=== PATIENT | female | born 1985 | race African-American/Black ===

== ENCOUNTER 2016-10-30 10:30 | Observation (INO) ==
[2016-10-30] MEDS ORDERED: SODIUM CHLORIDE 0.9% 1,000 ML IV STA (11:28)
[2016-10-30] MEDS ORDERED: ONDANSETRON 4 MG/2 ML VIAL IV STA (11:29)
[2016-10-30 11:30] LABS: Basophils % 0.3 % (0.0-0.8); Eosinophils # 0.1 10*3/uL (0.0-0.87); Eosinophils % 0.5 % (0.00-10.9); Hematocrit 37.5 VOL% (35.7-47.0); Hemoglobin 12.1 GM/DL (12.0-16.0); Immature Granulocytes % 0.4 %; Immature Granulocytes Absolute 0.05 #; Lymphocytes # 2.7 10*3/uL (1.4-4.0); Lymphocytes % 20.4 % (21.3-54.2); Mean Corpuscular HGB Conc 32.3 GM/DL (32-36); Mean Corpuscular Hemoglobin 23 PG (27-34); Mean Corpuscular Volume 72.1 FL (87-102); Mean Platelet Volume 9.5 FL (9.6-12.0); Monocytes # 0.6 10*3/uL (0.11-0.8); Monocytes % 4.2 % (1.7-12.7); Neutrophils # 9.8 10*3/uL (1.4-7.4); Neutrophils % 74.2 % (38.7-73.9); Platelet Count 310 10*3/uL (130-400); Red Cell Distribution Width 16.7 % (9.3-17.3); White Blood Count 13.2 10*3/uL (4.5-13.71)
--- NOTE | 2016-10-30 11:34 | Emergency Department Note ---
Arrival - Arrival Chief Complaint: Nausea/Vomiting/Diarrhea Stated Complaint: 8 wks , can't sto vomiting ED Nursing Triage Note: Pt is 8 wks gestation and had N/V the last four weeks but has been worse this morning. Mode of Arrival: Ambulatory Source: Patient Time Seen by Provider: 10/30/16 11:10 - History of Present Illness HPI Narrative: 31 y/o black female presents to the ER complaining of N/V. Patient is approximately 8 weeks and has not been able to hold down solid food for the last 3 weeks. Currently taking Phenergan with little results. Denies abdominal pain, fever, urinary symptoms, or vaginal bleeding. Past medical history significant for GERD, Hyperemesis gravidarum, Onset (ago): week(s) (3) Consistency: constant Severity: mild Date of Last Menstrual Period: 08/29/16 Allergies/Adverse Reactions: Allergies Allergy/AdvReac Type Severity Reaction Status Date / Time acetaminophen [From Lortab] Allergy Swelling Verified 12/08/15 23:32 of Lip/Tongue/Throat hydrocodone [From Lortab] Allergy Swelling Verified 12/08/15 23:32 of Lip/Tongue/Throat penicillin G Allergy Swelling Verified 10/18/16 19:34 of Lip/Tongue/Throat Home Medications: Home Medications Medication Instructions Recorded Confirmed Type Pnv#16/Iron Fum & Ps/FA/Om-3 1 capsule PO BEDTIME 10/26/16 10/30/16 History [Javed-C Dha Capsule] Progesterone,Micronized 200 mg PO BEDTIME 10/26/16 10/30/16 History [Progesterone] Promethazine HCl 25 mg PO Q4-6H PRN 10/26/16 10/30/16 History Promethazine Supp [Phenergan Supp] 25 mg RECTAL Q4H PRN 10/26/16 10/30/16 History Review of System - Review of System 12 point system: reviewed and no additional remarkable complaints except as stated - Review of System Gastrointestinal: Present: nausea, vomiting Medical,Surgical,& Family Hx - Medical History Cardio: History of: CHF Gastrointestinal: History of: GERD, GI Problems (HIATAL HERNIA) Other: History of: Miscellaneous Medical Problems - Family History Family History: Reports;: Family Heart Disease, Family Hypertension - Social History Smoking Status: Never smoker Frequency of Alcohol Use: None Type of Drug Use: None Exam Vital Signs: Vital Signs Temperature 98.3 F 10/30/16 10:38 Pulse Rate 99 H 10/30/16 10:38 Respiratory Rate 18 10/30/16 10:38 Blood Pressure 137/77 10/30/16 10:38 O2 Sat by Pulse Oximetry 98 10/30/16 10:38 - General General appearance: alert, in no apparent distress - ENT ENT exam: Present: normal exam, normal oropharynx, mucous membranes dry - Chest Chest inspection: Present: normal inspection - Respiratory Respiratory exam: Present: normal lung sounds bilaterally - Cardiovascular Cardiovascular exam: Present: regular rate, normal rhythm, normal heart sounds - Abdominal Exam Abdominal exam: Present: soft, normal bowel sounds. Absent: tenderness - Extremities Exam Extremities exam: Present: normal inspection, full ROM - Back Exam Back exam: Absent: CVA tenderness (R), CVA tenderness (L) - Neurological Exam Neurological exam: Present: alert, oriented X3 - Psychiatric Psychiatric exam: Present: normal affect, normal mood - Skin Skin exam: Present: warm, dry Course - Consultations Consultation #1: Marleen Beckham Time: 11:35 (Will admit patient to Marleen Beckham ) Disposition Clinical Impression: Hyperemesis gravidarum Case discussed with: patient Disposition: Still a Patient
[2016-10-30] MEDS ORDERED: ONDANSETRON 4 MG/2 ML VIAL ONE (11:39)
[2016-10-30 11:41] LABS: Apearance,Urine Slightly Hazy (Clear); Bacteria,Urine Occasional /HPF (Few); Bilirubin,Urine Negative (Negative); Blood, Urine Negative (Negative); Glucose,Urine (UA) Negative (Negative); Hyaline Casts,Urine 1 /LPF (0-3); Ketones,Urine Negative (Negative); Mucus,Urine Few /LPF (Occasional); Nitrite,Urine Negative (Negative); Protein,Urine 30 MG/DL; RBC,Urine 1 /HPF (0-4); Squamous Epithelial Cell,Urine Occasional /HPF (0-10); Urine Color Yellow (Yellow); Urine Specific Gravity 1.023 (1.001-1.035); Urine Urobilinogen < 2.0 EU/DL (0.2-1.0); WBC,Urine 4 /HPF (0-6)
[2016-10-30 11:57] LABS: Albumin 3.1 G/DL (3.4-5.0); Bilirubin,Total 0.7 MG/DL (0.2-1.0); Osmolality,Calculated 277.4 MOS/KG (273-304); Potassium 3.4 MMOL/L (3.5-5.1); Total Protein 7.9 G/DL (6.4-8.3)
[2016-10-30] MEDS ORDERED: ONDANSETRON 4 MG/2 ML VIAL IV PRN (12:18)
[2016-10-30 13:17] LABS: Free T4 (Free Thyroxine) 1.31 NG/DL (0.76-1.46); Thyroid Stimulating Hormone 0.604 uIU/ml (0.358-3.74)
--- NOTE | 2016-10-30 13:23 | Discharge Summary ---
Hospital Course - Hospital Course Hospital Course: This patient was admitted for management of presumed hyperemesis gravidarum at 12 weeks gestation following a referral from the emergency room [facility]. She was treated in the usual fashion for hyperemesis but continued to complain of "vomiting" a clear fluid even after she had been nothing by mouth long enough for her stomach of remained empty. Observation of the patient and examination fluid suggested this is actually saliva and suggested the patient has ptyalism rather than hyperemesis. She has responded much better to the Benadryl then she had to the Phenergan and Zofran. She is being discharged with instructions to see me in the office in 1 week. She has been advised to separate out rather than swallow her sputum. - Time spent with patient Time with patient DS: Less than 30 minutes Diagnosis - Discharge Diagnosis (1) Excessive salivation while Status: Acute Specialty Discharge - Follow Up or Referrals - Discharge Medications New Ondansetron Tab [Zofran Tab] 8 mg PO Q8H #30 tablet diphenhydrAMINE CAP [Benadryl Cap] 50 mg PO Q6H #60 capsule No Action Promethazine Supp [Phenergan Supp] 25 mg RECTAL Q4H PRN PRN Reason: Nausea/Vomiting Promethazine HCl 25 mg PO Q4-6H PRN PRN Reason: Nausea/Vomiting Progesterone,Micronized [Progesterone] 200 mg PO BEDTIME Pnv#16/Iron Fum & Ps/FA/Om-3 [Javed-C Dha Capsule] 1 capsule PO BEDTIME Discharge Plan - Discharge Medications New Ondansetron Tab [Zofran Tab] 8 mg PO Q8H #30 tablet diphenhydrAMINE CAP [Benadryl Cap] 50 mg PO Q6H #60 capsule No Action Promethazine Supp [Phenergan Supp] 25 mg RECTAL Q4H PRN PRN Reason: Nausea/Vomiting Promethazine HCl 25 mg PO Q4-6H PRN PRN Reason: Nausea/Vomiting Progesterone,Micronized [Progesterone] 200 mg PO BEDTIME Pnv#16/Iron Fum & Ps/FA/Om-3 [Javed-C Dha Capsule] 1 capsule PO BEDTIME - Follow Up or Referral - Forms/Instructions Exam - Constitutional Vitals: Period Temp Pulse Resp BP Sys/Bailey Pulse Ox Last 24 Hr 97.4 F 90 20 125/74 99 General appearance: mild distress - Head Head exam: Present: normal inspection - Neck Neck exam: Present: normal inspection - Respiratory Respiratory exam: Absent: accessory muscle use - Cardiovascular Cardiovascular exam: Present: regular rate and rhythm - GI/Abdominal GI/Abdominal exam: Present: soft. Absent: tenderness, rebound - Extremities Exam Extremities exam: Present: normal inspection - Back Exam Back exam: Present: normal inspection - Neurological Exam Neurological exam: Present: alert, oriented X3 - Psychiatric Psychiatric exam: Present: normal affect, normal mood DS: Provider Date of admission: 10/30/16 11:36 Primary care physician: . No PCP Attending physician on admission: Walter Cramer DO Consults: 10/30/16 12:29 Consult to Dietitian [CONS] Routine Reason for Dietitian: Dietary Consult Discharging clinician: Walter Cramer DO
--- NOTE | 2016-10-30 14:07 | OB/GYN Progress Note ---
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 EDC is based on LMP and first trimester ultrasound that presents for N/V secondary to presenting to ER x 3 during this for hyperemesis , n/v. She states she isn't able to keep anything down. She denies any upper abdominal pain, pelvic pressure, vaginal discharge, or bleeding. No records available to review. 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 - Constitutional Vitals: Vital Signs Temp Pulse Resp BP Pulse Ox 10/30/16 12:19 97.4 F L 90 20 125/74 99 General appearance: no acute distress - Antepartum / Post Antpartum Exam Uterus exam: Present: enlarged (soft, gravid, approximately 10 week size) - Head Head exam: Present: normal inspection - Eye Eye exam: Present: EOMI - ENT ENT exam: Present: normal exam - Neck Neck exam: Present: normal inspection - Respiratory Respiratory exam: Present: clear to auscultation bilaterally - Cardiovascular Cardiovascular exam: Present: regular rate and rhythm - GI/Abdominal GI/Abdominal exam: Present: normal bowel sounds - Extremities Exam Extremities exam: Present: normal inspection, normal capillary refill, full ROM - Back Exam Back exam: Present: normal inspection - Neurological Exam Neurological exam: Present: alert, oriented X3, normal gait - Psychiatric Psychiatric exam: Present: normal affect, normal mood - Skin Skin exam: Present: normal color, warm, dry, other (mucous membranes noted dry and cracked) Results - Labs CBC & BMP: 10/30/16 11:18 10/30/16 11:18 Labs: Laboratory Tests 10/30/16 10/30/16 10/30/16 11:18 11:18 11:18 WBC 13.2 RBC 5.20 Hgb 12.1 Hct 37.5 MCV 72.1 L MCH 23 L MCHC 32.3 RDW 16.7 Plt Count 310 MPV 9.5 L Neut % (Auto) 74.2 H Lymph % (Auto) 20.4 L Kings % (Auto) 4.2 Eos % (Auto) 0.5 Baso % (Auto) 0.3 Neut # (Auto) 9.8 H Lymph # (Auto) 2.7 Kings # (Auto) 0.6 Eos # (Auto) 0.1 Baso # (Auto) 0.0 Immature Gran % 0.4 Nucleated RBC % 0.0 Immature Gran # 0.05 Nucleated RBCs # 0.00 Sodium 140 Potassium 3.4 L Chloride 104 Carbon Dioxide 27 Anion Gap 12.4 BUN 7 Creatinine 0.90 GFR Calculation 114 BUN/Creatinine Ratio 7.00 Glucose 115 H Calculated Osmolality 277.4 Calcium 9.0 Total Bilirubin 0.70 AST 16 ALT 24 Alkaline Phosphatase 62 Total Protein 7.9 Albumin 3.1 L Globulin 4.8 H Albumin/Globulin Ratio 0.6 L Free T4 TSH 3rd Generation Urine Color Yellow Urine Appearance Slightly hazy Urine pH 6.0 Ur Specific [place] 1.023 Urine Protein 30 Urine Glucose (UA) Negative Urine Ketones Negative Urine Blood Negative Urine Nitrate Negative Urine Bilirubin Negative Urine Urobilinogen < 2.0 H Urine Leukocytes Trace Urine RBC 1 Urine WBC 4 Ur Squamous Epith Cells Occasional Urine Bacteria Occasional Hyaline Casts 1 Urine Mucus Few Ur Culture Indicated? Not indicated Urine Test 10/30/16 10/30/16 11:18 11:18 WBC RBC Hgb Hct MCV MCH MCHC RDW Plt Count MPV Neut % (Auto) Lymph % (Auto) Kings % (Auto) Eos % (Auto) Baso % (Auto) Neut # (Auto) Lymph # (Auto) Kings # (Auto) Eos # (Auto) Baso # (Auto) Immature Gran % Nucleated RBC % Immature Gran # Nucleated RBCs # Sodium Potassium Chloride Carbon Dioxide Anion Gap BUN Creatinine GFR Calculation BUN/Creatinine Ratio Glucose Calculated Osmolality Calcium Total Bilirubin AST ALT Alkaline Phosphatase Total Protein Albumin Globulin Albumin/Globulin Ratio Free T4 1.31 TSH 3rd Generation 0.604 Urine Color Urine Appearance Urine pH Ur Specific [place] Urine Protein Urine Glucose (UA) Urine Ketones Urine Blood Urine Nitrate Urine Bilirubin Urine Urobilinogen Urine Leukocytes Urine RBC Urine WBC Ur Squamous Epith Cells Urine Bacteria Hyaline Casts Urine Mucus Ur Culture Indicated? Urine Test Positive
--- NOTE | 2016-10-30 15:53 | Ultrasound Report ---
US OB <= 14 weeks fetus Indication: The cyst heart tones and followup growth. Comparison: None available. Technique: Multiple longitudinal and transverse real-time sonographic images of the pelvis are obtained using a transabdominal transducer. Findings: The uterus is anteflexed in position and measures 13.2 x 7.5 x 6.8 cm. A single gestational sac is present, located in the fundal cavity. A single is noted. The crown-rump length measures 2.1 cm, corresponding to an ultrasound gestational age of 8 weeks, 5 days. Positive cardiac activity is demonstrated at 161 bpm, with a regular rhythm. A yolk sac is present and measures 0.5 cm in mean diameter, which is normal. There are no abnormal intrauterine fluid collections present. The amniotic fluid index is not calculated at this early gestation. The placenta is also not well seen due to early gestation. The right ovary measures 3.7 x 2 x 2.1 cm, with the left measuring 3 x 2 x 2.5 cm. there is a 1.7 x 1.4 x 1.3 cm anechoic cyst associated with the right ovary. No worrisome adnexal mass is demonstrated. No significant free fluid is demonstrated. IMPRESSION: Early intrauterine gestation with cardiac activity. Estimated gestational age of 8 weeks 5 days and due date of 06/06/17. Reported gestational age of 8 weeks and 6 days and due date of 06/05/17 suggests adequate interval growth. Images were stored and captured. PROCEDURE INTERPRETED AT [facility] DEPARTMENT OF RADIOLOGY Final Report Signed by: Gautam Sanchez
[2016-10-30] MEDS: METOCLOPRAMIDE 10 MG/2 ML VIAL IV PRN (18:02)
[2016-10-30] MEDS: SODIUM CHLORIDE 0.9% 1,000 ML IV SCH (19:41)
[2016-10-31] MEDS: SODIUM CHLORIDE 0.9% 1,000 ML IV SCH ×3 (03:05→19:44)
--- NOTE | 2016-10-31 11:03 | OB/GYN History & Physical ---
History of Present Illness Chief complaint: Patient is a admitted for Hyperemesis Gravidarium History of present illness: Ms. Cuello is a 31 year old female with an EDC 06/05/17 per LMP and consistent with a first trimester ultrasound with EGA @ 9.0 wks. She presented to ER for recurrent n/v after presenting to the ER x 3. She was monitored overnight for n/v and continued to have some n/v this morning. States vomiting is better and noted after drinking orange juice. Denies any vaginal bleeding, pelvic pain or pressure. She denies any further issues. Home Medications Medication Instructions Recorded Confirmed Type Pnv#16/Iron Fum & Ps/FA/Om-3 1 capsule PO BEDTIME 10/26/16 10/30/16 History [Javed-C Dha Capsule] Progesterone,Micronized 200 mg PO BEDTIME 10/26/16 10/30/16 History [Progesterone] Promethazine HCl 25 mg PO Q4-6H PRN 10/26/16 10/30/16 History Promethazine Supp [Phenergan Supp] 25 mg RECTAL Q4H PRN 10/26/16 10/30/16 History Ondansetron Tab [Zofran Tab] 8 mg PO Q8H #30 tablet 10/30/16 Rx diphenhydrAMINE CAP [Benadryl Cap] 50 mg PO Q6H #60 capsule 10/30/16 Rx Allergies Allergy/AdvReac Type Severity Reaction Status Date / Time acetaminophen [From Lortab] Allergy Swelling Verified 12/08/15 23:32 of Lip/Tongue/Throat hydrocodone [From Lortab] Allergy Swelling Verified 12/08/15 23:32 of Lip/Tongue/Throat penicillin G Allergy Swelling Verified 10/18/16 19:34 of Lip/Tongue/Throat 12 point system: reviewed and no additional remarkable complaints except as stated - Gastrointestinal Gastrointestinal: Present: nausea, vomiting Medical,Surgical,& Family Hx - Medical History Cardio: History of: CHF (mother) Psychological: History of: Anxiety Disorders (no disorder but hx anxiety et took med until preg-not now) Gastrointestinal: History of: GERD, GI Problems (HIATAL HERNIA) Other: History of: Miscellaneous Medical Problems - Surgical History Surgical History: noncontributory - Family History Family History: Reports;: Family Heart Disease, Family Hypertension - Social History Smoking Status: Never smoker Frequency of Alcohol Use: None Type of Drug Use: None 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: Vital Signs Temp Pulse Resp BP Pulse Ox 10/31/16 07:19 97.6 F 95 H 20 123/67 98 10/31/16 06:00 20 10/31/16 04:00 98.0 F 90 20 118/61 98 10/31/16 02:00 20 10/31/16 00:00 97.5 F L 90 20 95/54 98 10/30/16 22:00 20 10/30/16 19:41 98.7 F 92 H 20 125/60 98 10/30/16 15:54 97.3 F L 93 H 20 108/65 99 10/30/16 15:53 20 10/30/16 12:19 97.4 F L 90 20 125/74 99 General appearance: no acute distress - Head Head exam: Present: normal inspection - Eye Eye exam: Present: EOMI - ENT ENT exam: Present: normal exam - Neck Neck exam: Present: normal inspection - Respiratory Respiratory exam: Present: clear to auscultation bilaterally - Cardiovascular Cardiovascular exam: Present: regular rate and rhythm - GI/Abdominal GI/Abdominal exam: Present: normal bowel sounds - Extremities Exam Extremities exam: Present: normal inspection, normal capillary refill, full ROM - Back Exam Back exam: Present: normal inspection - Neurological Exam Neurological exam: Present: alert, oriented X3, normal gait - Psychiatric Psychiatric exam: Present: normal affect, normal mood - Skin Skin exam: Present: normal color, warm, dry Assessment and Plan (1) Hyperemesis gravidarum Status: Acute Assessment and plan: IVF hydration Antiemetics Clear liquid diet, advance as tolerated US for growth and heart tones Current Visit: No Results - Labs CBC & BMP: 10/30/16 11:18 10/30/16 11:18 Labs: Laboratory Tests 10/30/16 10/30/16 10/30/16 11:18 11:18 11:18 WBC 13.2 RBC 5.20 Hgb 12.1 Hct 37.5 MCV 72.1 L MCH 23 L MCHC 32.3 RDW 16.7 Plt Count 310 MPV 9.5 L Neut % (Auto) 74.2 H Lymph % (Auto) 20.4 L [place] % (Auto) 4.2 Eos % (Auto) 0.5 Baso % (Auto) 0.3 Neut # (Auto) 9.8 H Lymph # (Auto) 2.7 [place] # (Auto) 0.6 Eos # (Auto) 0.1 Baso # (Auto) 0.0 Immature Gran % 0.4 Nucleated RBC % 0.0 Immature Gran # 0.05 Nucleated RBCs # 0.00 Sodium 140 Potassium 3.4 L Chloride 104 Carbon Dioxide 27 Anion Gap 12.4 BUN 7 Creatinine 0.90 GFR Calculation 114 BUN/Creatinine Ratio 7.00 Glucose 115 H Calculated Osmolality 277.4 Calcium 9.0 Total Bilirubin 0.70 AST 16 ALT 24 Alkaline Phosphatase 62 Total Protein 7.9 Albumin 3.1 L Globulin 4.8 H Albumin/Globulin Ratio 0.6 L Free T4 TSH 3rd Generation Urine Color Yellow Urine Appearance Slightly hazy Urine pH 6.0 Ur Specific [place] 1.023 Urine Protein 30 Urine Glucose (UA) Negative Urine Ketones Negative Urine Blood Negative Urine Nitrate Negative Urine Bilirubin Negative Urine Urobilinogen < 2.0 H Urine Leukocytes Trace Urine RBC 1 Urine WBC 4 Ur Squamous Epith Cells Occasional Urine Bacteria Occasional Hyaline Casts 1 Urine Mucus Few Ur Culture Indicated? Not indicated Urine Test 10/30/16 10/30/16 11:18 11:18 WBC RBC Hgb Hct MCV MCH MCHC RDW Plt Count MPV Neut % (Auto) Lymph % (Auto) [place] % (Auto) Eos % (Auto) Baso % (Auto) Neut # (Auto) Lymph # (Auto) [place] # (Auto) Eos # (Auto) Baso # (Auto) Immature Gran % Nucleated RBC % Immature Gran # Nucleated RBCs # Sodium Potassium Chloride Carbon Dioxide Anion Gap BUN Creatinine GFR Calculation BUN/Creatinine Ratio Glucose Calculated Osmolality Calcium Total Bilirubin AST ALT Alkaline Phosphatase Total Protein Albumin Globulin Albumin/Globulin Ratio Free T4 1.31 TSH 3rd Generation 0.604 Urine Color Urine Appearance Urine pH Ur Specific [place] Urine Protein Urine Glucose (UA) Urine Ketones Urine Blood Urine Nitrate Urine Bilirubin Urine Urobilinogen Urine Leukocytes Urine RBC Urine WBC Ur Squamous Epith Cells Urine Bacteria Hyaline Casts Urine Mucus Ur Culture Indicated? Urine Test Positive - Diagnostic Findings Procedure: Ultrasound: report reviewed by me (Early IUP with cardiac activity. EGA 8.5 wks with EDC 06/06/17. Suggests adequate interval growth)
[2016-10-31] MEDS: METOCLOPRAMIDE 10 MG/2 ML VIAL IV PRN (18:55)
[2016-11-01] MEDS: SODIUM CHLORIDE 0.9% 1,000 ML IV SCH (04:00)
[2016-11-01 07:58] VITALS: BP 98/53
[2016-11-01] MEDS ORDERED: ONDANSETRON 4 MG TABLET PO ONE (10:42)
--- NOTE | 2017-03-11 15:22 | Discharge Summary ---
DATE OF ADMISSION: 10/30/16 DATE OF DISCHARGE: 11/01/16 Jaquelin Webb is a 2, para 2-0-1-2, that presented on 10/30/2016 for hyperemesis gravidarum. She has an EDC of a 06/05/17 based on her last menstrual period in which she was 8.6 weeks' gestation. She had previously been admitted to the emergency room three times during the course of her of hyperemesis nausea and vomiting. She was now been admitted to the hospital for IV fluid hydration and antiemetics. During the course of her hospitalization, she did receive Phenergan, Reglan, and also Zofran. Her nausea and vomiting was stabilized and she was then discharged home with bleeding precautions. She has to follow up with me in two weeks. She is stable and she is doing fine. ADRIEN
== END 2016-11-01 11:00 | disposition home or self-care (01) | DRG 781 ==
LOC: N.EDINP 10:30 → N.ED 10:30 → N.OB 12:21
PROVIDERS: ADMIT Obstetrics & Gynecology; ATTEND Obstetrics & Gynecology

== ENCOUNTER 2017-05-06 10:43 | Inpatient (IN) ==
[2017-05-06] MEDS ORDERED: MEPERIDINE 50 MG/1 ML VIAL IV PRN (10:59)
[2017-05-06] MEDS ORDERED: ONDANSETRON 4 MG/2 ML VIAL IV PRN (10:59)
[2017-05-06] MEDS ORDERED: LACTATED RINGERS 1,000 ML IV SCH (11:00)
[2017-05-06] MEDS ORDERED: OXYTOCIN/LR 20 UNIT/1,000 ML BAG IV SCH (11:00)
[2017-05-06] MEDS ORDERED: CLINDAMYCIN INJ 900 MG in PREMIX 1 EACH IV SCH (11:30)
[2017-05-06 11:55] LABS: Basophils % 0.2 % (0.0-0.8); Eosinophils # 0.1 10*3/uL (0.0-0.87); Eosinophils % 0.5 % (0.00-10.9); Hematocrit 34.2 VOL% (35.7-47.0); Hemoglobin 11.6 GM/DL (12.0-16.0); Immature Granulocytes % 0.6 %; Immature Granulocytes Absolute 0.06 #; Lymphocytes # 2.7 10*3/uL (1.4-4.0); Lymphocytes % 28.3 % (21.3-54.2); Mean Corpuscular HGB Conc 33.9 GM/DL (32-36); Mean Corpuscular Hemoglobin 24 PG (27-34); Mean Corpuscular Volume 69.2 FL (87-102); Monocytes # 0.7 10*3/uL (0.11-0.8); Monocytes % 7.4 % (1.7-12.7); Neutrophils # 6.1 10*3/uL (1.4-7.4); Platelet Count 219 T/CUMM (130-400); Red Blood Count 4.94 MC/CUMM (3.8-5.5); Red Cell Distribution Width 17.5 % (9.3-17.3); White Blood Count 9.6 T/CUMM (4-12)
[2017-05-06] MEDS ORDERED: FAMOTIDINE 20 MG/2 ML VIAL IV ONE (12:34)
[2017-05-06] MEDS ORDERED: LACTATED RINGERS 1,000 ML IV ONE (12:34)
[2017-05-06] MEDS ORDERED: fentaNYL 2 MCG/ROPIV 0.2% EPID 150 ML EPIDURAL SCH (12:34)
[2017-05-06] MEDS ORDERED: ePHEDrine 50 MG/ML AMP IV PRN (12:34)
[2017-05-06] MEDS ORDERED: diphenhydrAMINE 50 MG/1 ML VIAL IV PRN ×2 (12:34)
[2017-05-06] MEDS ORDERED: PROMETHAZINE 25 MG/1 ML VIAL IM ONE (12:34)
[2017-05-06] MEDS ORDERED: hydrOXYzine HCL 25 MG/1 ML VIAL IM PRN (12:34)
[2017-05-06] MEDS ORDERED: CITRIC ACID/SODIUM CITRATE 30 ML UDCUP PO ONE (12:34)
--- NOTE | 2017-05-06 12:56 | OB/GYN History & Physical ---
History of Present Illness Chief complaint: Here for labor management secondary to contractions and advanced dilation History of present illness: Ms. Cuello is a 31 year old female that is a with an EDC 06/05/17 per LMP with EGA 35.5 wks. Records are current, available, and up to date. During the course of the she has experienced hyperemesis gravidarium, close interval pregnanc, GBS positive screen, cardiology consult with h/o trace triscupid and mitral valve regurgitation noted, H/O palpitations, perinatology consult secondary to cardiology results and hyperemesis, cervical change treated with Procardia, Celestone x 2 doses and bedrest. Labs: O positive, rubella immune, antibody screen negative, VDRL nonreactive, HBsAg negative, HIV negative, GC negative, Chlamydia negative, HgBA1C negative; Cystic Fibrosis negative; Vitamin D 9.4; MSAFP negative; Diabetic Screen 126 O: AROM with amniohook with clear fluid noted. IUPC inserted easily without difficulty with clear flashback noted. Pitocin @ 12 mu/min. Ampicillin 2 grams infused. A: IUP @ 35.5 wks, Category I FHR tracing, Pitocin Augmentation of Labor, GBS positive, Advanced Dilation, Spontaneous Labor, H/O mitral valve regurgitation, H/O Palpitations, AROM- clear fluid P: Consulted Dr. Welch agreed with plan to admit and augment patient for delivery. Plan of care discussed with patient and mutually agreed upon. Questions answered to desired level of satisfaction. Ampicillin 2 grams initially then 1 gram every 4 hours until delivery. Home Medications Medication Instructions Recorded Confirmed Type Pnv 16/Iron Fum,Ps/Folic/Om-3 1 capsule PO DAILY 10/26/16 04/19/17 History [Javed-C Dha Capsule] Promethazine HCl 25 mg PO Q4-6H PRN 10/26/16 04/19/17 History Aspirin [Ecotrin] 81 mg PO DAILY 04/19/17 04/19/17 History NIFEdipine CAP [Procardia] 10 mg PO Q6HR 04/19/17 04/19/17 History Allergies Allergy/AdvReac Type Severity Reaction Status Date / Time acetaminophen [From Lortab] Allergy Swelling Verified 12/08/15 23:32 of Lip/Tongue/Throat hydrocodone [From Lortab] Allergy Swelling Verified 12/08/15 23:32 of Lip/Tongue/Throat penicillin G Allergy Swelling Verified 10/18/16 19:34 of Lip/Tongue/Throat 12 point system: reviewed and no additional remarkable complaints except as stated Medical,Surgical,& Family Hx - Medical History Cardio: History of: Cardiovascular Problems (H/O Mitral valve and trace triscupid regurgitation, H/O Palpitations) Psychological: History of: Anxiety Disorders (no disorder but hx anxiety et took med until preg-not now) Gastrointestinal: History of: GERD, GI Problems (HIATAL HERNIA) Musculoskeletal: History of: Musculoskeletal Problems (H/O shoulder pain, H/O back pain) Other: History of: Miscellaneous Medical Problems (H/O anxiety, bacterial vaginosis, vaginal candidia) - Surgical History Additional Surgical History: H/O colposcopy - Family History Family History: Reports;: Family Diabetes (sister), Family Heart Disease (mother - CHF), Family Hypertension (siister mother), Additional Family History (asthma dad brother) - Social History Smoking Status: Never smoker Frequency of Alcohol Use: None Type of Drug Use: None Marital Status: Lives With:: Spouse Functional capacity: independent ambulation 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 Vitals: Vital Signs Temp Pulse Resp BP 05/06/17 11:05 96.7 F L 103 H 20 109/75 General appearance: no acute distress - Antepartum / Post Antepartum Exam Cervix - Dilatation: 6 cm Effacement: 80% Station: 0 Rupture: AROM withi amniohook- clear fluid noted Presentation: VTX Heart Rate: 130s with spontaneous variability and occasional variable decel noted [place]: Every 3-4 min/ 60-70 sec/ mild Breast: bilateral: normal Abdomen obstetrics: Present: bowel sounds normal Vulva: bilateral: normal Vagina: Present: normal moisture Uterus exam: Present: enlarged (fundal height @ 34 cm, EFW 6-6.5 pounds) Anus/Rectum: Present: normal perianal skin - Head Head exam: Present: normal inspection - Eye Eye exam: Present: EOMI - ENT ENT exam: Present: normal exam - Neck Neck exam: Present: normal inspection - Respiratory Respiratory exam: Present: clear to auscultation bilaterally - Breast Breasts: as per HPI - GI/Abdominal GI/Abdominal exam: Present: normal bowel sounds - Extremities Exam Extremities exam: Present: normal inspection, normal capillary refill, full ROM - Back Exam Back exam: Present: normal inspection - Neurological Exam Neurological exam: Present: alert, oriented X3, normal gait - Psychiatric Psychiatric exam: Present: normal affect - Skin Skin exam: Present: normal color, warm, dry Assessment and Plan (1) Spontaneous onset of labor Status: Acute Current Visit: Yes (2) Artificial rupture of membranes antepartum Status: Acute Current Visit: Yes (3) Group beta Strep positive Status: Acute Current Visit: Yes (4) labor in third trimester Status: Acute Current Visit: Yes Results - Labs CBC & BMP: 05/06/17 11:20
[2017-05-06] MEDS ORDERED: miSOPROStol 200 MCG TABLET ONE (13:39)
--- NOTE | 2017-05-06 14:20 | Operative Note ---
Date of procedure: 05/06/17 Pre-op diagnosis: IUP @ 35.5 wks, Spontneous Labor, GBS positive Post-op diagnosis: other () Procedure: Received patient in dorsal lithotomy position, prepped, and drapped. At 1359, spontaneous delivery of head in JOIE position under an epidural anesthetic. Spontaneous delivery of anterior then posterior shoulder delivered easily without difficulty. delivered spontaneously easily without difficulty and secured. Mouth and nose bulb suctioned, vigorous tone and cry noted. Cord milked towards , doubly clamped, and cut. placed in radiant warmer and attended per nursery nurses. At 1403, spontaneous delivery of placenta via [place]- 3 vessel cord, intact, mild calcifications noted. Hemostasis maintained with fundal massage and Pitocin 20 units in 1000 cc of LR. Perineum inspected- intact, no lacerations noted. Female with Apgars 8 and 9 with weight pending attended per nursery RN. Mother is stable and desires to bottle feed. Anesthesia: epidural Surgeon / Physician: Marleen Beckham Estimated blood loss: none (100 cc) Specimens: other (placenta to pathology secondary to delivery and GBS positive) Condition: stable Disposition: floor Results - Labs CBC & BMP: 05/06/17 11:20 Discharge Plan - Discharge Medications No Action Promethazine HCl 25 mg PO Q4-6H PRN PRN Reason: Nausea/Vomiting Pnv 16/Iron Fum,Ps/Folic/Om-3 [Javed-C Dha Capsule] 1 capsule PO DAILY Aspirin [Ecotrin] 81 mg PO DAILY NIFEdipine CAP [Procardia] 10 mg PO Q6HR - Follow Up or Referral - Forms/Instructions
[2017-05-06] MEDS ORDERED: ACETAMINOPHEN 325 MG TABLET PO PRN (14:21)
[2017-05-06] MEDS ORDERED: LANOLIN 50% CREAM 0.3 OZ TUBE TOP PRN (14:21)
[2017-05-06] MEDS ORDERED: OXYTOCIN/LR 20 UNIT/1,000 ML BAG IV ONE (14:21)
[2017-05-06] MEDS ORDERED: HYDROCORTISONE 2.5% RECTAL CREAM 30 GM TUBE TOP PRN (14:21)
[2017-05-06] MEDS ORDERED: WITCH HAZEL PADS 100/JAR TOP PRN (14:21)
[2017-05-06] MEDS ORDERED: BISACODYL 10 MG SUPP RECTAL PRN (14:21)
[2017-05-06] MEDS ORDERED: BENZOCAINE 20%/MENTHOL 0.5% SPRAY 56 GM CAN TOP PRN (14:21)
[2017-05-06] MEDS ORDERED: RHO(D) IMMUNE GLOBULIN 300 MCG SYRINGE IM ONE (15:00)
[2017-05-06] MEDS ORDERED: DIPH/TET/ACEL PERT BOOSTER VACCINE 0.5 ML VIAL IM ONE (15:00)
[2017-05-06] MEDS ORDERED: MEASLES/MUMPS/RUBELLA VACCINE 0.5 ML VIAL SUBCUT ONE (15:00)
[2017-05-06] MEDS: FERROUS SULFATE 325 MG TABLET PO SCH ×2 (16:45→21:49)
[2017-05-06] MEDS ORDERED: diphenhydrAMINE CAP 25 MG CAPSULE PO PRN (18:24)
--- NOTE | 2017-05-06 18:47 | Anesthesia Post-Op ---
Anesthesia Post OP - Post Ansesthetic Evaluation Patient seen in post op: Yes Resp: within normal limits CV: within normal limits Mental: within normal limits Temp: within normal limits [id number]-Tzcanaqgi: within normal limits Nausea and Vomiting: within normal limits Pain: within normal limits
[2017-05-06] MEDS: DOCUSATE SODIUM 100 MG CAPSULE PO SCH (21:49)
[2017-05-07] MEDS: IBUPROFEN 800 MG TABLET PO PRN ×2 (00:11→11:21)
[2017-05-07 05:02] LABS: Basophils % 0.2 % (0.0-0.8); Eosinophils # 0.1 10*3/uL (0.0-0.87); Eosinophils % 0.7 % (0.00-10.9); Hemoglobin 10.7 GM/DL (12.0-16.0); Immature Granulocytes % 0.4 %; Immature Granulocytes Absolute 0.05 #; Lymphocytes # 3.7 10*3/uL (1.4-4.0); Lymphocytes % 30.3 % (21.3-54.2); Mean Corpuscular HGB Conc 32.4 GM/DL (32-36); Mean Corpuscular Hemoglobin 23 PG (27-34); Mean Corpuscular Volume 70.7 FL (87-102); Mean Platelet Volume 12.1 FL (9.6-12.0); Monocytes # 0.8 10*3/uL (0.11-0.8); Monocytes % 6.8 % (1.7-12.7); Neutrophils # 7.4 10*3/uL (1.4-7.4); Neutrophils % 61.6 % (38.7-73.9); Platelet Count 207 T/CUMM (130-400); Red Blood Count 4.67 MC/CUMM (3.8-5.5); Red Cell Distribution Width 17.6 % (9.3-17.3)
[2017-05-07] MEDS: DOCUSATE SODIUM 100 MG CAPSULE PO SCH ×2 (08:36→21:28)
[2017-05-07] MEDS: FERROUS SULFATE 325 MG TABLET PO SCH ×2 (08:36→21:28)
--- NOTE | 2017-05-07 09:00 | OB/GYN Progress Note ---
Assessment and Plan (1) Spontaneous onset of labor Status: Resolved Current Visit: Yes (2) Artificial rupture of membranes antepartum Status: Resolved Current Visit: Yes (3) Group beta Strep positive Status: Resolved Current Visit: Yes (4) labor in third trimester Status: Resolved Current Visit: Yes (5) (normal spontaneous vaginal delivery) Status: Acute Current Visit: Yes [employer] - PN: Subj Interval history: Breast pumping. Denies any problems. States has been visiting baby in the NICU. Exam [employer] - Constitutional Vitals: Vital Signs Temp Pulse Resp BP Pulse Ox 05/07/17 07:35 18 05/07/17 07:22 97.6 F 65 18 105/57 100 05/06/17 20:00 74 20 05/06/17 19:45 97.0 F L 74 20 115/66 99 05/06/17 18:42 83 20 110/67 98 05/06/17 17:45 86 20 108/62 98 05/06/17 17:15 75 20 113/66 98 05/06/17 16:45 97.6 F 74 20 111/63 98 05/06/17 12:00 18 105/57 05/06/17 11:05 96.7 F L 103 H 20 109/75 General appearance: no acute distress - Antepartum / Post Post Exam Breast: bilateral: normal Abdomen obstetrics: Present: bowel sounds normal Vagina: Present: normal moisture Uterus exam: Present: normal size (firm, midline, 2 below umbilicus) Adnexa: bilateral: normal Anus/Rectum: Present: normal perianal skin - Head Head exam: Present: normal inspection - ENT ENT exam: Present: normal exam - Neck Neck exam: Present: normal inspection - Respiratory Respiratory exam: Present: clear to auscultation bilaterally - Cardiovascular Cardiovascular exam: Present: regular rate and rhythm - GI/Abdominal GI/Abdominal exam: Present: normal bowel sounds - Extremities Exam Extremities exam: Present: normal inspection, normal capillary refill, full ROM - Back Exam Back exam: Present: normal inspection - Neurological Exam Neurological exam: Present: alert, oriented X3 - Psychiatric Psychiatric exam: Present: normal affect, normal mood - Skin Skin exam: Present: normal color, warm, dry Results - Labs CBC & BMP: 05/07/17 04:36 Labs: Laboratory Tests 07/10/1105/06/17 05/07/17 11:20 11:20 04:36 WBC 9.6 12.0 RBC 4.94 4.67 Hgb 11.6 L 10.7 L Hct 34.2 L 33.0 L MCV 69.2 L 70.7 L MCH 24 L 23 L MCHC 33.9 32.4 RDW 17.5 H 17.6 H Plt Count 219 207 MPV 12.0 12.1 H Neut % (Auto) 63.0 61.6 Lymph % (Auto) 28.3 30.3 Curry % (Auto) 7.4 6.8 Eos % (Auto) 0.5 0.7 Baso % (Auto) 0.2 0.2 Neut # (Auto) 6.1 7.4 Lymph # (Auto) 2.7 3.7 Curry # (Auto) 0.7 0.8 Eos # (Auto) 0.1 0.1 Baso # (Auto) 0.0 0.0 Immature Gran % 0.6 0.4 Nucleated RBC % 0.0 0.0 Immature Gran # 0.06 0.05 Nucleated RBCs # 0.00 0.00 Blood Type O POSITIVE Antibody Screen Negative
[2017-05-08] MEDS: IBUPROFEN 800 MG TABLET PO PRN (03:21)
[2017-05-08 07:43] VITALS: BP 124/71
[2017-05-08] MEDS: FERROUS SULFATE 325 MG TABLET PO SCH ×3 (08:10→18:27)
[2017-05-08] MEDS: DOCUSATE SODIUM 100 MG CAPSULE PO SCH (08:51)
--- NOTE | 2017-05-08 11:18 | Discharge Summary ---
Hospital Course - Hospital Course Hospital Course: Patient is a 1 now para 3 that presented with spontaneous labor with advanced dilatation at 5 cm received from the clinic 2 days ago. She was group beta strep positive and treated with ampicillin 2 doses. Labor progressed under an epidural anesthetic with Pitocin augmentation for patient to deliver a female with Apgars 8 and 9 weighing over 5 pounds. It was noted that the patient was doing fine she experienced minimal bleeding, and intact perineum , no lacerations. Baby is in NICU and patient is presently breast pumping. Ms. Cuello complains of indigestion and requests Prilosec prior to discharge home. She will be discharged in the morning if stable. Diagnosis - Discharge Diagnosis (1) Spontaneous onset of labor Status: Resolved (2) Artificial rupture of membranes antepartum Status: Resolved (3) Group beta Strep positive Status: Resolved (4) labor in third trimester Status: Resolved (5) (normal spontaneous vaginal delivery) Status: Resolved Specialty Discharge - Follow Up or Referrals Follow up with: Marleen Beckham CFNP [Advanced Practice Nurse] - Discharge Plan - Discharge Data Disposition: Disch To Home/Self Care Condition at Discharge: Stable Discharge Diet: advance to your usual diet Activity: resume usual activities as tolerated Hygiene: may shower Weight Bearing at Discharge: full weight bearing Driving: not for (2 weeks) Contact your physician if you experience:: fever over 101, Difficulty voiding, Redness or swelling, Nausea/Vomiting, Shortness of breath, Bleeding, pain uncontrolled by pain medications - Discharge Medications New Ferrous Sulfate Tab [Feosol Original Tab] 325 mg PO TID #90 tablet Ibuprofen 800 mg PO Q8HR PRN #90 tablet PRN Reason: pain Omeprazole [Prilosec] 20 mg PO BID #60 capsule No Action Promethazine HCl 25 mg PO Q4-6H PRN PRN Reason: Nausea/Vomiting Pnv 16/Iron Fum,Ps/Folic/Om-3 [Javed-C Dha Capsule] 1 capsule PO DAILY Aspirin [Ecotrin] 81 mg PO DAILY NIFEdipine CAP [Procardia] 10 mg PO Q6HR - Follow Up or Referral Follow Up: Marleen Beckham CFNP [Advanced Practice Nurse] - 2 Weeks - Forms/Instructions Instructions: Depression (GEN), Perineal Care (DC), Vaginal Delivery (DC), Bleeding (DC) Exam - Constitutional Vitals: Period Temp Pulse Resp BP Sys/Bailey Pulse Ox Last 24 Hr 96.4 F-97.8 F 56-86 18-20 91-128/45-72 98-99 General appearance: normal weight - Head Head exam: Present: normal inspection - Eye Eye exam: Present: EOMI - ENT ENT exam: Present: normal exam - Neck Neck exam: Present: normal inspection - Respiratory Respiratory exam: Present: clear to auscultation bilaterally - Cardiovascular Cardiovascular exam: Present: regular rate and rhythm - GI/Abdominal GI/Abdominal exam: Present: normal bowel sounds - Extremities Exam Extremities exam: Present: normal inspection, normal capillary refill, full ROM - Back Exam Back exam: Present: normal inspection - Neurological Exam Neurological exam: Present: alert, oriented X3, normal gait - Psychiatric Psychiatric exam: Present: normal affect, normal mood - Skin Skin exam: Present: normal color, warm, dry Discharge Results Procedures and tests throughout hospitalization: Laboratory Results - last 72 hr 05/06/17 05/06/17 05/07/17 11:20 11:20 04:36 WBC 9.6 12.0 RBC 4.94 4.67 Hgb 11.6 L 10.7 L Hct 34.2 L 33.0 L MCV 69.2 L 70.7 L MCH 24 L 23 L MCHC 33.9 32.4 RDW 17.5 H 17.6 H Plt Count 219 207 MPV 12.0 12.1 H Neut % (Auto) 63.0 61.6 Lymph % (Auto) 28.3 30.3 Bull[place] % (Auto) 7.4 6.8 Eos % (Auto) 0.5 0.7 Baso % (Auto) 0.2 0.2 Neut # (Auto) 6.1 7.4 Lymph # (Auto) 2.7 3.7 Bull[place] # (Auto) 0.7 0.8 Eos # (Auto) 0.1 0.1 Baso # (Auto) 0.0 0.0 Immature Gran % 0.6 0.4 Nucleated RBC % 0.0 0.0 Immature Gran # 0.06 0.05 Nucleated RBCs # 0.00 0.00 Blood Type O POSITIVE Antibody Screen Negative DS: Provider Date of admission: 05/06/17 10:59 Primary care physician: . No PCP Attending physician on admission: Joana Welch, Consults: 05/06/17 10:59 Consult to Anesthesiology [CONS] Routine Consulting Provider: Reason for Anesthesiology: Epidural Consult Comment: Epidural for pain managment 05/06/17 14:22 Consult to Director Of Sustainable Design [CONS] Routine Consult Director Of Sustainable Design: Breast Feeding Discharging clinician: HEIDI Love
--- NOTE | 2017-05-08 19:20 | Pathology Report from [facility] ---
[facility] [place] ACCESSION # : [id number] PATIENT NAME : Philly Sanchez ORDERING DR : Joana Welch MD CLINICAL HX: IUP @ 35.5 wks gestation, labor, +GBS POST-OP DX: Same SPECIMEN INFO: Placenta GROSS DESCRIPTION: Received fresh labeled PHILLY SANCHEZ is a 382 gm placenta measuring 17.0 x 16.0 x 2.0 cm. The membranes are squires and translucent. The umbilical cord measures 25.5 cm, contains three vessels and is eccentrically inserted. The surface is blue castillo and intact. The maternal surface is red castillo and intact with no abnormalities appreciated upon sectioning. Sections submitted A- membranes and cord, B- and maternal surfaces. DIAGNOSIS FOR PHILLY SANCHEZ: PLACENTA, 35.5 WEEKS GESTATION, VAGINAL DELIVERY: Mature placenta, 382 gm. membranes with very early choriodeciduitis. Trivascular umbilical cord, 25.5 cm in length. COLLECTED DATE: 05/07/2017 [facility] REPORT DATE: 05/08/2017 ELECTRONICALLY SIGNED BY: Luly Abbasi M.D. 05/08/2017 - 11:12:48 [facility]
== END 2017-05-08 18:40 | disposition home or self-care (01) | DRG 775 ==
LOC: N.LDOUT 10:43 → N.LD 10:44 → N.OB 16:28
PROVIDERS: ADMIT Obstetrics & Gynecology; ATTEND Obstetrics & Gynecology